=== PATIENT | female | born 1935 | race African-American/Black ===

== ENCOUNTER 2018-05-06 15:37 | Inpatient (IN) ==
[2018-05-06] MEDS ORDERED: ACETAMINOPHEN 325 MG TABLET PO PRN (15:44)
[2018-05-06] MEDS ORDERED: oxyCODONE/ACETAMINOPHEN 5-325 MG TABLET PO PRN (15:44)
[2018-05-06] MEDS ORDERED: MAGNESIUM HYDROXIDE SUSP 30 ML UDCUP PO PRN (15:44)
[2018-05-06] MEDS: SODIUM CHLORIDE 0.9% 1,000 ML IV SCH (17:40)
[2018-05-06] MEDS: PANTOPRAZOLE 40 MG VIAL IV SCH (17:40)
[2018-05-06 17:53] LABS: Basophils # 0.1 10*3/uL (0.0-0.2); Basophils % 0.7 % (0.0-0.8); Eosinophils # 0.2 10*3/uL (0.0-0.87); Eosinophils % 2.6 % (0.00-10.9); Hematocrit 41.9 VOL% (35.7-47.0); Immature Granulocytes % 0.6 %; Immature Granulocytes Absolute 0.05 #; Lymphocytes # 1.9 10*3/uL (1.4-4.0); Lymphocytes % 22.6 % (21.3-54.2); Mean Corpuscular Hemoglobin 31 PG (27-34); Mean Platelet Volume 11.6 FL (9.6-12.0); Monocytes # 0.4 10*3/uL (0.11-0.8); Monocytes % 4.7 % (1.7-12.7); Neutrophils # 5.9 10*3/uL (1.4-7.4); Neutrophils % 68.8 % (38.7-73.9); Platelet Count 171 T/CUMM (130-400); Red Blood Count 4.19 MC/CUMM (3.8-5.5); Red Cell Distribution Width 13.1 % (9.3-17.3); White Blood Count 8.6 T/CUMM (4-12)
[2018-05-06 18:25] LABS: Albumin 3.3 G/DL (3.4-5.0); Bilirubin,Total 0.5 MG/DL (0.2-1.0); Osmolality,Calculated 283.3 MOS/KG (273-304)
[2018-05-06] MEDS ORDERED: FLUTICASONE 50 MCG NASAL SPRAY 16 GM BOTTLE BOTH NARES PRN (18:55)
[2018-05-06] MEDS: MINOXIDIL 10 MG TABLET PO SCH (21:02)
[2018-05-06] MEDS: CARVEDILOL 12.5 MG TABLET PO SCH (21:02)
[2018-05-06] MEDS: LISINOPRIL 20 MG TABLET PO SCH (21:03)
[2018-05-06] MEDS: amLODIPine 10 MG TABLET PO SCH (21:03)
[2018-05-06] MEDS: METOCLOPRAMIDE 10 MG TABLET PO SCH (21:03)
[2018-05-06] MEDS: INSULIN LISPRO 100 UNIT/ML SUBCUT SCH (22:33)
[2018-05-06 23:16] LABS: Apearance,Urine CLEAR (Clear); Bilirubin,Urine Negative (Negative); Blood, Urine Negative (Negative); Glucose,Urine (UA) >=500 mg/dL (Negative); Ketones,Urine 5 mg/dL (Negative); Mucus,Urine Occasional /LPF (Occasional); Nitrite,Urine Negative (Negative); Protein,Urine Negative; RBC,Urine 1 /HPF (0-4); Squamous Epithelial Cell,Urine Occasional /HPF (0-10); Urine Color Yellow (Yellow); Urine Specific Gravity 1.007 (1.001-1.035); Urine Urobilinogen < 2.0 EU/DL (0.2-1.0); WBC,Urine 1 /HPF (0-6)
[2018-05-07] MEDS: SODIUM CHLORIDE 0.9% 1,000 ML IV SCH ×3 (00:57→17:27)
[2018-05-07 03:01] LABS: Basophils # 0.1 10*3/uL (0.0-0.2); Basophils % 0.8 % (0.0-0.8); Eosinophils # 0.3 10*3/uL (0.0-0.87); Eosinophils % 3.2 % (0.00-10.9); Hematocrit 35.7 VOL% (35.7-47.0); Hemoglobin 11.5 GM/DL (12.0-16.0); Immature Granulocytes % 0.1 %; Immature Granulocytes Absolute 0.01 #; Lymphocytes # 2.2 10*3/uL (1.4-4.0); Lymphocytes % 27.3 % (21.3-54.2); Mean Corpuscular HGB Conc 32.2 GM/DL (32-36); Mean Corpuscular Hemoglobin 32 PG (27-34); Mean Corpuscular Volume 98.9 FL (87-102); Mean Platelet Volume 11.6 FL (9.6-12.0); Monocytes # 0.6 10*3/uL (0.11-0.8); Neutrophils # 4.8 10*3/uL (1.4-7.4); Neutrophils % 60.6 % (38.7-73.9); Platelet Count 141 T/CUMM (130-400); Red Blood Count 3.61 MC/CUMM (3.8-5.5); Red Cell Distribution Width 12.9 % (9.3-17.3); White Blood Count 7.9 T/CUMM (4-12)
[2018-05-07 03:11] LABS: Potassium 3.7 MMOL/L (3.5-5.1); Risk Ratio 1.62; VLDL CHOLESTEROL 10.6 MG/DL
[2018-05-07 03:23] LABS: Thyroid Stimulating Hormone 0.706 uIU/ml (0.358-3.74)
[2018-05-07] MEDS: INSULIN LISPRO 100 UNIT/ML SUBCUT SCH ×4 (07:52→22:26)
[2018-05-07] MEDS: METOCLOPRAMIDE 10 MG TABLET PO SCH ×4 (10:45→22:26)
[2018-05-07] MEDS: MINOXIDIL 10 MG TABLET PO SCH ×2 (12:11→22:26)
[2018-05-07] MEDS: PANTOPRAZOLE 40 MG VIAL IV SCH (12:11)
[2018-05-07] MEDS: FUROSEMIDE 40 MG TABLET PO SCH (12:13)
[2018-05-07] MEDS: LISINOPRIL 20 MG TABLET PO SCH ×2 (12:13→22:26)
[2018-05-07] MEDS: SIMVASTATIN 20 MG TABLET PO SCH (12:13)
[2018-05-07] MEDS: CARVEDILOL 12.5 MG TABLET PO SCH ×2 (12:13→16:08)
[2018-05-07] MEDS: ONDANSETRON 4 MG/2 ML VIAL IV PRN (15:25)
[2018-05-07] MEDS: amLODIPine 10 MG TABLET PO SCH (22:26)
[2018-05-08] MEDS: SODIUM CHLORIDE 0.9% 1,000 ML IV SCH ×3 (00:08→21:59)
[2018-05-08] MEDS: ONDANSETRON 4 MG/2 ML VIAL IV PRN ×2 (06:08→18:24)
[2018-05-08] MEDS: PANTOPRAZOLE 40 MG VIAL IV SCH (09:26)
[2018-05-08] MEDS: INSULIN LISPRO 100 UNIT/ML SUBCUT SCH ×4 (09:26→21:59)
[2018-05-08] MEDS ORDERED: PROPOFOL 200 MG/20 ML VIAL IV ONE (13:25)
[2018-05-08] MEDS ORDERED: LIDOCAINE 100 MG/5 ML SYRINGE ONE (13:25)
[2018-05-08] MEDS: MINOXIDIL 10 MG TABLET PO SCH ×2 (14:40→21:58)
[2018-05-08] MEDS: SIMVASTATIN 20 MG TABLET PO SCH (14:41)
[2018-05-08] MEDS: LISINOPRIL 20 MG TABLET PO SCH ×2 (14:41→21:58)
[2018-05-08] MEDS: FUROSEMIDE 40 MG TABLET PO SCH (14:41)
[2018-05-08] MEDS: CARVEDILOL 12.5 MG TABLET PO SCH ×2 (14:42→16:58)
[2018-05-08] MEDS: METOCLOPRAMIDE 10 MG TABLET PO SCH ×4 (14:42→21:58)
[2018-05-08] MEDS: FLUCONAZOLE INJ 200 MG in PREMIX 1 EACH IV SCH (14:46)
[2018-05-08] MEDS: amLODIPine 10 MG TABLET PO SCH (21:58)
[2018-05-09] MEDS: ONDANSETRON 4 MG/2 ML VIAL IV PRN (00:53)
[2018-05-09] MEDS: SODIUM CHLORIDE 0.9% 1,000 ML IV SCH (06:10)
[2018-05-09 06:28] LABS: Basophils % 0.5 % (0.0-0.8); Eosinophils # 0.2 10*3/uL (0.0-0.87); Eosinophils % 2.2 % (0.00-10.9); Hematocrit 37.4 VOL% (35.7-47.0); Immature Granulocytes % 0.4 %; Immature Granulocytes Absolute 0.03 #; Lymphocytes # 1.9 10*3/uL (1.4-4.0); Lymphocytes % 24.3 % (21.3-54.2); Mean Corpuscular HGB Conc 32.1 GM/DL (32-36); Mean Corpuscular Hemoglobin 31 PG (27-34); Mean Corpuscular Volume 97.7 FL (87-102); Mean Platelet Volume 11.9 FL (9.6-12.0); Monocytes # 0.4 10*3/uL (0.11-0.8); Monocytes % 5.4 % (1.7-12.7); Neutrophils # 5.1 10*3/uL (1.4-7.4); Neutrophils % 67.2 % (38.7-73.9); Platelet Count 152 T/CUMM (130-400); Red Blood Count 3.83 MC/CUMM (3.8-5.5); Red Cell Distribution Width 12.7 % (9.3-17.3); White Blood Count 7.6 T/CUMM (4-12)
[2018-05-09 06:50] LABS: Bilirubin,Total 0.8 MG/DL (0.2-1.0); Calcium 7.7 MG/DL (8.5-10.1); Osmolality,Calculated 285.1 MOS/KG (273-304); Potassium 3.2 MMOL/L (3.5-5.1); Total Protein 7.1 G/DL (6.4-8.3)
[2018-05-09] MEDS: INSULIN LISPRO 100 UNIT/ML SUBCUT SCH ×4 (08:35→22:28)
[2018-05-09] MEDS: PANTOPRAZOLE 40 MG VIAL IV SCH (08:36)
[2018-05-09] MEDS: LISINOPRIL 20 MG TABLET PO SCH ×2 (08:39→22:28)
[2018-05-09] MEDS: MINOXIDIL 10 MG TABLET PO SCH ×2 (08:39→22:27)
[2018-05-09] MEDS: CARVEDILOL 12.5 MG TABLET PO SCH ×2 (08:39→17:01)
[2018-05-09] MEDS: FUROSEMIDE 40 MG TABLET PO SCH ×2 (08:40→08:46)
[2018-05-09] MEDS: SIMVASTATIN 20 MG TABLET PO SCH (08:40)
[2018-05-09] MEDS: METOCLOPRAMIDE 10 MG TABLET PO SCH ×4 (08:40→22:27)
[2018-05-09] MEDS: SODIUM CHLOR 0.9% KCL 40 MEQ 40 MEQ/1,000 ML BAG IV SCH ×2 (12:33→22:50)
[2018-05-09 14:15] LABS: HIV Antigen/Antibody Result Nonreactive (Nonreactive)
[2018-05-09] MEDS: FLUCONAZOLE INJ 200 MG in PREMIX 1 EACH IV SCH (15:19)
[2018-05-09] MEDS: INSULIN NPH/REGULAR 70/30 100 UNIT/ML SUBCUT SCH (17:02)
[2018-05-09] MEDS: amLODIPine 10 MG TABLET PO SCH (22:27)
[2018-05-10] MEDS: ONDANSETRON 4 MG/2 ML VIAL IV PRN (04:18)
[2018-05-10] MEDS: SODIUM CHLOR 0.9% KCL 40 MEQ 40 MEQ/1,000 ML BAG IV SCH ×2 (05:28→20:49)
[2018-05-10 06:36] LABS: Basophils % 0.6 % (0.0-0.8); Eosinophils # 0.2 10*3/uL (0.0-0.87); Hematocrit 35.7 VOL% (35.7-47.0); Hemoglobin 11.4 GM/DL (12.0-16.0); Immature Granulocytes % 0.2 %; Immature Granulocytes Absolute 0.01 #; Lymphocytes # 1.9 10*3/uL (1.4-4.0); Lymphocytes % 29.8 % (21.3-54.2); Mean Corpuscular HGB Conc 31.9 GM/DL (32-36); Mean Corpuscular Hemoglobin 31 PG (27-34); Mean Corpuscular Volume 96.5 FL (87-102); Mean Platelet Volume 12.1 FL (9.6-12.0); Monocytes # 0.4 10*3/uL (0.11-0.8); Monocytes % 6.9 % (1.7-12.7); Neutrophils # 3.8 10*3/uL (1.4-7.4); Neutrophils % 59.5 % (38.7-73.9); Platelet Count 154 T/CUMM (130-400); Red Cell Distribution Width 12.8 % (9.3-17.3); White Blood Count 6.4 T/CUMM (4-12)
[2018-05-10 07:08] LABS: Calcium 8.2 MG/DL (8.5-10.1); Osmolality,Calculated 284.7 MOS/KG (273-304); Potassium 3.5 MMOL/L (3.5-5.1)
[2018-05-10] MEDS: INSULIN LISPRO 100 UNIT/ML SUBCUT SCH ×4 (08:45→22:14)
[2018-05-10] MEDS: INSULIN NPH/REGULAR 70/30 100 UNIT/ML SUBCUT SCH ×2 (09:32→16:36)
[2018-05-10] MEDS: PANTOPRAZOLE 40 MG VIAL IV SCH (09:34)
[2018-05-10] MEDS: SIMVASTATIN 20 MG TABLET PO SCH (09:35)
[2018-05-10] MEDS: MINOXIDIL 10 MG TABLET PO SCH ×2 (09:35→20:52)
[2018-05-10] MEDS: METOCLOPRAMIDE 10 MG TABLET PO SCH ×4 (09:35→20:52)
[2018-05-10] MEDS: LISINOPRIL 20 MG TABLET PO SCH ×2 (09:35→20:52)
[2018-05-10] MEDS: FUROSEMIDE 40 MG TABLET PO SCH (09:35)
[2018-05-10] MEDS: CARVEDILOL 12.5 MG TABLET PO SCH ×2 (09:36→16:36)
[2018-05-10] MEDS: FLUCONAZOLE INJ 200 MG in PREMIX 1 EACH IV SCH (16:35)
[2018-05-10] MEDS: amLODIPine 10 MG TABLET PO SCH (20:50)
[2018-05-10] MEDS ORDERED: PHENOL 1.4% THROAT SPRAY 177 ML BOTTLE PO PRN (21:33)
[2018-05-10] MEDS: NYSTATIN 500,000 UNIT/5 ML UDCUP SWISH/SWAL SCH (21:52)
[2018-05-11] MEDS: NYSTATIN 500,000 UNIT/5 ML UDCUP SWISH/SWAL SCH (05:52)
[2018-05-11 08:03] VITALS: BP 150/80
[2018-05-11] MEDS: MINOXIDIL 10 MG TABLET PO SCH (08:49)
[2018-05-11] MEDS: SIMVASTATIN 20 MG TABLET PO SCH (08:50)
[2018-05-11] MEDS: LISINOPRIL 20 MG TABLET PO SCH (08:50)
[2018-05-11] MEDS: CARVEDILOL 12.5 MG TABLET PO SCH (08:50)
[2018-05-11] MEDS: INSULIN NPH/REGULAR 70/30 100 UNIT/ML SUBCUT SCH (08:51)
[2018-05-11] MEDS: METOCLOPRAMIDE 10 MG TABLET PO SCH (08:51)
[2018-05-11] MEDS: FUROSEMIDE 40 MG TABLET PO SCH (08:51)
[2018-05-11] MEDS: INSULIN LISPRO 100 UNIT/ML SUBCUT SCH (08:52)
[2018-05-11] MEDS: PANTOPRAZOLE 40 MG VIAL IV SCH (08:52)
== END 2018-05-11 12:04 | disposition home health service (06) | DRG 369 ==
LOC: N.2E 16:58
PROVIDERS: ADMIT Family Medicine; ATTEND Family Medicine

== ENCOUNTER 2019-03-06 15:08 | Inpatient (IN) ==
[2019-03-06] MEDS ORDERED: ACETAMINOPHEN 325 MG TABLET PO PRN (17:41)
[2019-03-06] MEDS ORDERED: MAGNESIUM HYDROXIDE SUSP 30 ML UDCUP PO PRN (17:41)
[2019-03-06] MEDS ORDERED: FLUTICASONE 50 MCG NASAL SPRAY 16 GM BOTTLE BOTH NARES PRN (17:56)
[2019-03-06 18:47] LABS: Basophils % 0.7 % (0.0-0.8); Eosinophils # 0.2 10*3/uL (0.0-0.87); Eosinophils % 2.8 % (0.00-10.9); Hemoglobin 12.7 GM/DL (12.0-16.0); Immature Granulocytes % 0.4 %; Immature Granulocytes Absolute 0.02 #; Lymphocytes # 2.1 10*3/uL (1.4-4.0); Lymphocytes % 37.6 % (21.3-54.2); Mean Corpuscular Volume 98.6 FL (87-102); Mean Platelet Volume 11.2 FL (9.6-12.0); Monocytes % 6.5 % (1.7-12.7); Platelet Count 161 T/CUMM (130-400); Red Blood Count 4.16 MC/CUMM (3.8-5.5); Red Cell Distribution Width 12.5 % (9.3-17.3); White Blood Count 5.7 T/CUMM (4-12)
[2019-03-06 19:04] LABS: Amylase 46 U/L (25-115)
[2019-03-06 19:09] LABS: Albumin 3.4 G/DL (3.4-5.0); Bilirubin,Total 0.8 MG/DL (0.2-1.0); Calcium 9.1 MG/DL (8.5-10.1); Osmolality,Calculated 279.4 MOS/KG (273-304); Total Protein 7.5 G/DL (6.4-8.3)
[2019-03-06] MEDS ORDERED: MINOXIDIL 10 MG TABLET PO SCH (21:00)
[2019-03-06] MEDS: POTASSIUM CHLORIDE 20 MEQ TABLET PO SCH (21:45)
[2019-03-06] MEDS: NYSTATIN 500,000 UNIT/5 ML UDCUP SWISH/SWAL SCH (21:45)
[2019-03-06] MEDS: CARVEDILOL 12.5 MG TABLET PO SCH (21:46)
[2019-03-06] MEDS: ONDANSETRON 4 MG/2 ML VIAL IV PRN (21:46)
[2019-03-06] MEDS: METOCLOPRAMIDE 5 MG TABLET PO SCH (21:46)
[2019-03-06] MEDS: SODIUM CHLORIDE 0.9% 1,000 ML IV SCH (21:49)
[2019-03-07] MEDS: SODIUM CHLORIDE 0.9% 1,000 ML IV SCH ×3 (03:22→22:14)
[2019-03-07 05:58] LABS: Basophils % 0.6 % (0.0-0.8); Eosinophils # 0.2 10*3/uL (0.0-0.87); Eosinophils % 3.8 % (0.00-10.9); Hematocrit 37.2 VOL% (35.7-47.0); Hemoglobin 11.4 GM/DL (12.0-16.0); Immature Granulocytes % 0.2 %; Immature Granulocytes Absolute 0.01 #; Lymphocytes # 2.2 10*3/uL (1.4-4.0); Lymphocytes % 42.4 % (21.3-54.2); Mean Corpuscular HGB Conc 30.6 GM/DL (32-36); Mean Corpuscular Volume 99.2 FL (87-102); Mean Platelet Volume 11.8 FL (9.6-12.0); Monocytes % 10.2 % (1.7-12.7); Neutrophils % 42.8 % (38.7-73.9); Platelet Count 134 T/CUMM (130-400); Red Blood Count 3.75 MC/CUMM (3.8-5.5); Red Cell Distribution Width 12.5 % (9.3-17.3); White Blood Count 5.2 T/CUMM (4-12)
[2019-03-07 06:25] LABS: Bilirubin,Total 0.7 MG/DL (0.2-1.0); Calcium 8.5 MG/DL (8.5-10.1); Osmolality,Calculated 285.8 MOS/KG (273-304); Risk Ratio 2.26; Total Protein 6.5 G/DL (6.4-8.3); VLDL CHOLESTEROL 13.4 MG/DL
[2019-03-07 06:42] LABS: Thyroid Stimulating Hormone 1.56 uIU/ml (0.358-3.74)
[2019-03-07] MEDS ORDERED: PANTOPRAZOLE 40 MG TABLET PO SCH (09:00)
[2019-03-07 10:39] LABS: Apearance,Urine CLEAR (Clear); Bacteria,Urine Occasional /HPF (Few); Bilirubin,Urine Negative (Negative); Blood, Urine Negative (Negative); Glucose,Urine (UA) Negative (Negative); Ketones,Urine Negative (Negative); Mucus,Urine Occasional /LPF (Occasional); Nitrite,Urine Negative (Negative); Protein,Urine Negative; RBC,Urine 1 /HPF (0-4); Squamous Epithelial Cell,Urine Occasional /HPF (0-10); Urine Color Straw (Yellow); Urine Specific Gravity 1.003 (1.001-1.035); Urine Urobilinogen < 2.0 EU/DL (0.2-1.0); WBC,Urine 1 /HPF (0-6)
[2019-03-07] MEDS: CARVEDILOL 12.5 MG TABLET PO SCH ×2 (10:46→16:27)
[2019-03-07] MEDS: FLUCONAZOLE INJ 200 MG in PREMIX 1 EACH IV SCH (10:47)
[2019-03-07] MEDS: NYSTATIN 500,000 UNIT/5 ML UDCUP SWISH/SWAL SCH ×4 (10:47→20:13)
[2019-03-07] MEDS: METOCLOPRAMIDE 5 MG TABLET PO SCH ×4 (10:47→20:12)
[2019-03-07] MEDS: amLODIPine 10 MG TABLET PO SCH (10:47)
[2019-03-07] MEDS: SIMVASTATIN 20 MG TABLET PO SCH (10:48)
[2019-03-07] MEDS: FUROSEMIDE 20 MG TABLET PO SCH (10:48)
[2019-03-07] MEDS: POTASSIUM CHLORIDE 20 MEQ TABLET PO SCH ×2 (10:48→20:12)
[2019-03-07] MEDS: PANTOPRAZOLE 40 MG VIAL IV SCH (10:59)
[2019-03-07] MEDS: INSULIN LISPRO 100 UNIT/ML SUBCUT SCH ×3 (11:40→20:40)
[2019-03-07] MEDS: ONDANSETRON 4 MG/2 ML VIAL IV PRN (14:15)
[2019-03-08 05:25] LABS: Basophils % 0.7 % (0.0-0.8); Eosinophils # 0.3 10*3/uL (0.0-0.87); Eosinophils % 4.9 % (0.00-10.9); Hemoglobin 12.3 GM/DL (12.0-16.0); Immature Granulocytes % 0.2 %; Immature Granulocytes Absolute 0.01 #; Lymphocytes # 1.8 10*3/uL (1.4-4.0); Lymphocytes % 31.1 % (21.3-54.2); Mean Corpuscular HGB Conc 31.5 GM/DL (32-36); Mean Platelet Volume 11.7 FL (9.6-12.0); Monocytes % 7.8 % (1.7-12.7); Neutrophils % 55.3 % (38.7-73.9); Platelet Count 149 T/CUMM (130-400); Red Blood Count 3.98 MC/CUMM (3.8-5.5); Red Cell Distribution Width 12.2 % (9.3-17.3); White Blood Count 5.7 T/CUMM (4-12)
[2019-03-08 06:06] LABS: Albumin 3.3 G/DL (3.4-5.0); Bilirubin,Total 0.7 MG/DL (0.2-1.0); Calcium 8.3 MG/DL (8.5-10.1); Osmolality,Calculated 286.8 MOS/KG (273-304); Total Protein 7.1 G/DL (6.4-8.3)
[2019-03-08] MEDS: SODIUM CHLORIDE 0.9% 1,000 ML IV SCH (06:30)
[2019-03-08] MEDS: INSULIN LISPRO 100 UNIT/ML SUBCUT SCH ×4 (09:16→20:46)
[2019-03-08] MEDS: amLODIPine 10 MG TABLET PO SCH (09:17)
[2019-03-08] MEDS: CARVEDILOL 12.5 MG TABLET PO SCH ×2 (09:17→16:08)
[2019-03-08] MEDS: SIMVASTATIN 20 MG TABLET PO SCH (09:17)
[2019-03-08] MEDS: NYSTATIN 500,000 UNIT/5 ML UDCUP SWISH/SWAL SCH ×4 (09:17→20:36)
[2019-03-08] MEDS: FUROSEMIDE 20 MG TABLET PO SCH (09:17)
[2019-03-08] MEDS: POTASSIUM CHLORIDE 20 MEQ TABLET PO SCH ×2 (09:17→20:36)
[2019-03-08] MEDS: METOCLOPRAMIDE 5 MG TABLET PO SCH ×4 (09:19→20:36)
[2019-03-08] MEDS: PANTOPRAZOLE 40 MG VIAL IV SCH (09:21)
[2019-03-08] MEDS: FLUCONAZOLE INJ 200 MG in PREMIX 1 EACH IV SCH (09:23)
[2019-03-08] MEDS ORDERED: BISACODYL 10 MG SUPP RECTAL ONE (10:46)
[2019-03-08] MEDS: SODIUM CHLOR 0.9% KCL 20 MEQ 20 MEQ/1,000 ML BAG IV SCH ×3 (10:51→20:39)
[2019-03-09] MEDS: SODIUM CHLOR 0.9% KCL 20 MEQ 20 MEQ/1,000 ML BAG IV SCH ×2 (04:40→12:51)
[2019-03-09 06:07] LABS: Basophils % 0.6 % (0.0-0.8); Eosinophils # 0.2 10*3/uL (0.0-0.87); Eosinophils % 4.5 % (0.00-10.9); Hematocrit 40.2 VOL% (35.7-47.0); Hemoglobin 12.5 GM/DL (12.0-16.0); Immature Granulocytes % 0.2 %; Immature Granulocytes Absolute 0.01 #; Lymphocytes # 2.1 10*3/uL (1.4-4.0); Lymphocytes % 38.7 % (21.3-54.2); Mean Corpuscular HGB Conc 31.1 GM/DL (32-36); Mean Platelet Volume 11.3 FL (9.6-12.0); Platelet Count 140 T/CUMM (130-400); Red Cell Distribution Width 12.2 % (9.3-17.3); White Blood Count 5.3 T/CUMM (4-12)
[2019-03-09 06:27] LABS: Albumin 3.5 G/DL (3.4-5.0); Bilirubin,Total 0.9 MG/DL (0.2-1.0); Calcium 8.6 MG/DL (8.5-10.1); Total Protein 7.4 G/DL (6.4-8.3)
[2019-03-09] MEDS: INSULIN LISPRO 100 UNIT/ML SUBCUT SCH ×4 (09:05→21:03)
[2019-03-09] MEDS: PANTOPRAZOLE 40 MG VIAL IV SCH (09:06)
[2019-03-09] MEDS: NYSTATIN 500,000 UNIT/5 ML UDCUP SWISH/SWAL SCH ×4 (09:06→20:38)
[2019-03-09] MEDS: METOCLOPRAMIDE 5 MG TABLET PO SCH ×4 (09:06→20:38)
[2019-03-09] MEDS: POTASSIUM CHLORIDE 20 MEQ TABLET PO SCH ×2 (09:06→20:38)
[2019-03-09] MEDS: FUROSEMIDE 20 MG TABLET PO SCH (09:07)
[2019-03-09] MEDS: SIMVASTATIN 20 MG TABLET PO SCH (09:07)
[2019-03-09] MEDS: CARVEDILOL 12.5 MG TABLET PO SCH ×2 (09:07→17:00)
[2019-03-09] MEDS: amLODIPine 10 MG TABLET PO SCH (09:07)
[2019-03-09] MEDS: FLUCONAZOLE INJ 200 MG in PREMIX 1 EACH IV SCH (09:08)
[2019-03-10] MEDS: SODIUM CHLOR 0.9% KCL 20 MEQ 20 MEQ/1,000 ML BAG IV SCH ×2 (04:20→21:31)
[2019-03-10 05:31] LABS: Basophils % 0.5 % (0.0-0.8); Eosinophils # 0.3 10*3/uL (0.0-0.87); Eosinophils % 4.3 % (0.00-10.9); Hematocrit 42.1 VOL% (35.7-47.0); Hemoglobin 13.1 GM/DL (12.0-16.0); Immature Granulocytes % 0.2 %; Immature Granulocytes Absolute 0.01 #; Lymphocytes # 2.2 10*3/uL (1.4-4.0); Lymphocytes % 38.4 % (21.3-54.2); Mean Corpuscular HGB Conc 31.1 GM/DL (32-36); Mean Platelet Volume 11.7 FL (9.6-12.0); Monocytes % 7.9 % (1.7-12.7); Neutrophils % 48.7 % (38.7-73.9); Platelet Count 162 T/CUMM (130-400); Red Blood Count 4.34 MC/CUMM (3.8-5.5); White Blood Count 5.8 T/CUMM (4-12)
[2019-03-10 06:03] LABS: Calcium 8.8 MG/DL (8.5-10.1); Osmolality,Calculated 282.1 MOS/KG (273-304)
[2019-03-10] MEDS: INSULIN LISPRO 100 UNIT/ML SUBCUT SCH ×4 (09:28→21:31)
[2019-03-10] MEDS: PANTOPRAZOLE 40 MG VIAL IV SCH (09:31)
[2019-03-10] MEDS: FLUCONAZOLE INJ 200 MG in PREMIX 1 EACH IV SCH (09:32)
[2019-03-10] MEDS: FUROSEMIDE 20 MG TABLET PO SCH (09:38)
[2019-03-10] MEDS: METOCLOPRAMIDE 5 MG TABLET PO SCH ×4 (09:38→21:32)
[2019-03-10] MEDS: amLODIPine 10 MG TABLET PO SCH (09:38)
[2019-03-10] MEDS: POTASSIUM CHLORIDE 20 MEQ TABLET PO SCH ×2 (09:38→21:32)
[2019-03-10] MEDS: CARVEDILOL 12.5 MG TABLET PO SCH ×2 (09:38→17:00)
[2019-03-10] MEDS: NYSTATIN 500,000 UNIT/5 ML UDCUP SWISH/SWAL SCH ×4 (09:38→21:32)
[2019-03-10] MEDS: SIMVASTATIN 20 MG TABLET PO SCH (09:38)
[2019-03-10] MEDS ORDERED: PROPOFOL 200 MG/20 ML VIAL IV ONE (15:48)
[2019-03-10] MEDS ORDERED: LIDOCAINE 1% 5 ML VIAL ONE (15:48)
[2019-03-11 04:49] LABS: Basophils # 0.1 10*3/uL (0.0-0.2); Basophils % 0.7 % (0.0-0.8); Eosinophils # 0.2 10*3/uL (0.0-0.87); Eosinophils % 2.4 % (0.00-10.9); Hematocrit 40.7 VOL% (35.7-47.0); Immature Granulocytes % 0.1 %; Immature Granulocytes Absolute 0.01 #; Lymphocytes # 2.2 10*3/uL (1.4-4.0); Lymphocytes % 29.4 % (21.3-54.2); Mean Corpuscular HGB Conc 31.9 GM/DL (32-36); Mean Corpuscular Volume 96.2 FL (87-102); Mean Platelet Volume 11.9 FL (9.6-12.0); Monocytes % 7.6 % (1.7-12.7); Neutrophils % 59.8 % (38.7-73.9); Platelet Count 158 T/CUMM (130-400); Red Blood Count 4.23 MC/CUMM (3.8-5.5); Red Cell Distribution Width 12.1 % (9.3-17.3); White Blood Count 7.5 T/CUMM (4-12)
[2019-03-11 05:28] LABS: Calcium 8.8 MG/DL (8.5-10.1); Osmolality,Calculated 283.1 MOS/KG (273-304)
[2019-03-11] MEDS: INSULIN LISPRO 100 UNIT/ML SUBCUT SCH ×4 (08:40→21:09)
[2019-03-11] MEDS: FLUCONAZOLE INJ 200 MG in PREMIX 1 EACH IV SCH (08:41)
[2019-03-11] MEDS: SODIUM CHLOR 0.9% KCL 20 MEQ 20 MEQ/1,000 ML BAG IV SCH (08:42)
[2019-03-11] MEDS: METOCLOPRAMIDE 5 MG TABLET PO SCH ×4 (09:04→20:54)
[2019-03-11] MEDS: NYSTATIN 500,000 UNIT/5 ML UDCUP SWISH/SWAL SCH ×4 (12:43→20:54)
[2019-03-11] MEDS: POTASSIUM CHLORIDE 20 MEQ TABLET PO SCH ×2 (12:51→20:54)
[2019-03-11] MEDS: CARVEDILOL 12.5 MG TABLET PO SCH ×2 (12:51→17:22)
[2019-03-11] MEDS: FUROSEMIDE 20 MG TABLET PO SCH (12:51)
[2019-03-11] MEDS: amLODIPine 10 MG TABLET PO SCH (12:52)
[2019-03-11] MEDS: SIMVASTATIN 20 MG TABLET PO SCH (12:52)
[2019-03-11] MEDS: PANTOPRAZOLE 40 MG VIAL IV SCH (15:52)
[2019-03-12] MEDS: SODIUM CHLOR 0.9% KCL 20 MEQ 20 MEQ/1,000 ML BAG IV SCH ×2 (02:00→16:17)
[2019-03-12 04:51] LABS: Basophils % 0.7 % (0.0-0.8); Eosinophils # 0.2 10*3/uL (0.0-0.87); Eosinophils % 4.1 % (0.00-10.9); Hematocrit 41.3 VOL% (35.7-47.0); Immature Granulocytes % 0.2 %; Immature Granulocytes Absolute 0.01 #; Lymphocytes % 33.8 % (21.3-54.2); Mean Corpuscular HGB Conc 31.5 GM/DL (32-36); Mean Platelet Volume 11.9 FL (9.6-12.0); Neutrophils % 53.2 % (38.7-73.9); Platelet Count 154 T/CUMM (130-400); Red Cell Distribution Width 12.2 % (9.3-17.3); White Blood Count 5.9 T/CUMM (4-12)
[2019-03-12 05:34] LABS: Albumin 3.3 G/DL (3.4-5.0); Bilirubin,Total 1.5 MG/DL (0.2-1.0); Calcium 8.7 MG/DL (8.5-10.1); Osmolality,Calculated 286.1 MOS/KG (273-304); Total Protein 7.1 G/DL (6.4-8.3)
[2019-03-12] MEDS: amLODIPine 10 MG TABLET PO SCH (10:01)
[2019-03-12] MEDS: FUROSEMIDE 20 MG TABLET PO SCH (10:01)
[2019-03-12] MEDS: CARVEDILOL 12.5 MG TABLET PO SCH ×2 (10:01→16:16)
[2019-03-12] MEDS: SIMVASTATIN 20 MG TABLET PO SCH (10:01)
[2019-03-12] MEDS: NYSTATIN 500,000 UNIT/5 ML UDCUP SWISH/SWAL SCH ×4 (10:01→20:36)
[2019-03-12] MEDS: METOCLOPRAMIDE 5 MG TABLET PO SCH ×4 (10:01→20:36)
[2019-03-12] MEDS: INSULIN LISPRO 100 UNIT/ML SUBCUT SCH ×3 (10:02→16:17)
[2019-03-12] MEDS: PANTOPRAZOLE 40 MG VIAL IV SCH (10:02)
[2019-03-12] MEDS: FLUCONAZOLE INJ 200 MG in PREMIX 1 EACH IV SCH (10:09)
[2019-03-12] MEDS: POTASSIUM CHLORIDE 20 MEQ TABLET PO SCH ×2 (10:11→20:36)
[2019-03-12 16:05] VITALS: BP 147/73
== END 2019-03-12 20:40 | disposition home or self-care (01) | DRG 392 ==
LOC: N.2E 15:48
PROVIDERS: ADMIT Family Medicine; ATTEND Family Medicine